=== PATIENT | female | born 1935 | race Caucasian/White ===

== ENCOUNTER → 2016-06-27 | Outpatient (CLI) | payer BC ==
[~2016-06-27] MED LIST: AMLO-110 PO; ATOR-26 PO; INSUINJ8 SC; LABE1TAB28 PO; LEVO112T18 PO; LISI20TA55 PO; NVLGI SC; NVLGI SQ
[2016-06-27 09:54] LABS: ALT/SGPT 15 U/L (12-78); AST/SGOT 12 U/L (15-37); BLOOD UREA NITROGEN 15 mg/dl (7-18); BUN/CREATININE RATIO 13.7 (10-20); CALCIUM 9.4 mg/dl (8.5-10.1); CARBON DIOXIDE 32 mmol/L (21-32); CHLORIDE 101 mmol/L (98-107); GLUCOSE 155 mg/dl (70-99); POTASSIUM 3.7 mmol/L (3.5-5.1); SODIUM 139 mmol/L (136-145)
[2016-06-27 10:05] LABS: ALB/GLOB RATIO 0.9 (0.9-2); ALKALINE PHOSPHATASE 62 U/L (45-117); CHOLESTEROL 119 mg/dl (0-200); CHOLESTEROL/HDL RATIO 2.3; HDL CHOLESTEROL 52 mg/dl; LDL CHOLESTEROL CALCULATED 45 mg/dl; THYROID STIMULATING HORMONE 0.973 uIu/ml (0.300-4.500); TRIGLYCERIDES 110 mg/dl (0-150); VERY LOW DENSITY LIPOPROT CALC 22 mg/dl
[2016-06-27 10:23] LABS: ESTIMATED AVERAGE GLUCOSE 174 mg/dl; HA1C FLAG Normal (Normal)
== END | disposition home or self-care (01) ==
LOC: C.LAB1850 07:35
PROVIDERS: ATTEND Internal Medicine Endocrinology, Diabetes & Metabolism
DX: E11.9 Type 2 diabetes mellitus without complications (principal); E55.9 Vitamin D deficiency, unspecified; E53.8 Deficiency of other specified B group vitamins

== ENCOUNTER → 2016-07-02 | Outpatient (CLI) | payer BC | END | disposition home or self-care (01) | LOC: C.LABSPEC 14:29 | PROVIDERS: ATTEND Internal Medicine | DX: E11.9 Type 2 diabetes mellitus without complications (principal) ==

== ENCOUNTER → 2016-12-23 | Outpatient (CLI) | payer BC ==
[2016-12-23 15:49] LABS: ALT/SGPT 16 U/L (12-78); BLOOD UREA NITROGEN 20 mg/dl (7-18); BUN/CREATININE RATIO 16.8 (10-20); CALCIUM 9.3 mg/dl (8.5-10.1); CARBON DIOXIDE 30 mmol/L (21-32); CHLORIDE 102 mmol/L (98-107); GLUCOSE 183 mg/dl (70-99); POTASSIUM 3.8 mmol/L (3.5-5.1); SODIUM 137 mmol/L (136-145)
[2016-12-23 15:52] LABS: ALB/GLOB RATIO 0.8 (0.9-2); ALKALINE PHOSPHATASE 64 U/L (45-117); AST/SGOT 15 U/L (15-37)
[2016-12-24 07:41] LABS: ESTIMATED AVERAGE GLUCOSE 180 mg/dl; HA1C FLAG Normal (Normal)
== END | disposition home or self-care (01) ==
LOC: C.LAB1850 14:06
PROVIDERS: ATTEND Internal Medicine
DX: E11.65 Type 2 diabetes mellitus with hyperglycemia (principal)

== ENCOUNTER → 2017-07-29 | Outpatient (CLI) | payer BC ==
[2017-07-29 09:47] LABS: BASO % 0.6 %; BASO ABS # 0.04 K/uL (0-0.2); EOS % 2.9 %; EOS ABS # 0.21 K/uL (0-0.5); HEMATOCRIT 35.1 % (37-47); HEMOGLOBIN 11.9 g/dL (12.0-16.0); IG# 0.01 K/uL (0.00-0.02); LYMPH % 28.1 %; MEAN CELL VOLUME 85.4 fL (80-100); MEAN CORPUSCULAR HGB CONC 33.9 g/dl (32-36); MEAN PLATELET VOLUME 9.8 fL (7.4-10.4); MONO ABS # 0.64 K/uL (0.11-0.59); NEUT % 59.3 %; NEUT ABS # 4.22 K/uL (1.4-6.5); PLATELET COUNT 262 K/uL (130-400); RED CELL DISTRIBUTION WIDTH CV 13.5 % (11.5-14.5); RED CELL DISTRIBUTION WIDTH SD 42.2 fL (36.4-46.3); WHITE BLOOD COUNT 7.12 K/uL (4.8-10.8)
[2017-07-29 10:03] LABS: ALBUMIN 3.3 gm/dl (3.4-5.0); ALT/SGPT 17 U/L (12-78); AST/SGOT 15 U/L (15-37); BLOOD UREA NITROGEN 22 mg/dl (7-18); CALCIUM 9.1 mg/dl (8.5-10.1); CARBON DIOXIDE 31 mmol/L (21-32); CHOLESTEROL 117 mg/dl (0-200); CREATININE 1.07 mg/dl (0.60-1.20); GLUCOSE 165 mg/dl (70-99); POTASSIUM 3.6 mmol/L (3.5-5.1); SODIUM 136 mmol/L (136-145)
[2017-07-29 10:15] LABS: CREATININE RANDOM URINE 78.6 mg/dl
[2017-07-29 10:15] LABS: HEMOGLOBIN A1C 7.9 % (4.5-5.6)
[2017-07-29 10:18] LABS: ALKALINE PHOSPHATASE 72 U/L (45-117); LDL CHOLESTEROL CALCULATED 54 mg/dl; TOTAL PROTEIN 7.6 gm/dl (6.4-8.2)
== END | disposition home or self-care (01) ==
LOC: C.LAB1850 07:08
PROVIDERS: ATTEND Nurse Practitioner Family
DX: E11.65 Type 2 diabetes mellitus with hyperglycemia (principal); I10 Essential (primary) hypertension; E53.8 Deficiency of other specified B group vitamins; E55.9 Vitamin D deficiency, unspecified; E03.9 Hypothyroidism, unspecified

== ENCOUNTER 2019-08-26 08:49 | Inpatient (IN) ==
[2019-08-26] MEDS ORDERED: SODIUM CHLORIDE 0.9% 1000ML 500 ML IV ONE (09:04)
[2019-08-26 09:43] LABS: Basophils # (auto) 0.02 K/uL (0-0.2); Basophils % (auto) 0.2 %; Eosinophils # (auto) 0.09 K/uL (0-0.5); Hematocrit (blood only) 39.6 % (37-47); Immature Granulocytes # (auto) 0.04 K/uL (0.00-0.02); Immature Granulocytes % (auto) 0.5 %; Lymphocytes # (auto) 1.55 K/uL (1.2-3.4); Lymphocytes % (auto) 17.6 %; Mean Corpuscular Hemoglobin 28.8 pg (25-34); Mean Corpuscular Hgb Conc 32.8 g/dL (32-36); Mean Corpuscular Volume 87.8 fL (80-100); Mean Platelet Volume 10.5 fL (7.4-10.4); Monocytes # (auto) 0.89 K/uL (0.11-0.59); Monocytes % (auto) 10.1 %; Neutrophils % (auto) 70.6 %; Platelet Count 289 K/uL (130-400); RDW Standard Deviation 45.9 fL (36.4-46.3); Red Blood Count 4.51 M/uL (4.2-5.4); White Blood Count 8.79 K/uL (4.8-10.8)
--- NOTE | 2019-08-26 09:48 | Emergency Department Note ---
Impression & Plan Non-ST elevation ID (NSTEMI), Weakness, Nausea & vomiting, Changes in vision ED Provider Note Provider: Manoj Flores MD DATE OF SERVICE: 08/26/2019 CHIEF COMPLAINT: Weakness, visual change, abdominal symptoms HISTORY OF PRESENT ILLNESS: Patient is a 84-year-old female with a past medical history including diabetes, aortic valve replacement, CAD, hypothyroidism, hypertension presenting today with reports that over the past week she has been unwell. Evidently but a week ago had GI symptoms for 3 to 4 days with nausea vomiting and diarrhea. Had some diffuse abdominal cramping at that time. Patient states that improved some but she continued to be weak. States over the last several days about 3 she has had some changes in her vision and states that she is seeing some line-like items. Patient also states that she had a mild headache at the time and does have some pain predominantly left upper area of her head. Denies any trauma. Patient is maintained on aspirin but no other blood thinners. Patient was seen at her primary care physician's office referred here for further care. Denies current abdominal symptoms. Denies chest pain or shortness of breath. Patient denies focal weakness in her extremities. Patient denies any rashes recently. Patient denies a history of similar. Patient denies history of cardiac arrhythmia. Patient denies any eye pain. History of eye surgery before in the left eye. Reports that the primary care's office they noted some vision loss in the right eye. Patient's blood sugars over the last day or so have been elevated in the 300s. REVIEW OF SYSTEMS: A total of 10 review of systems was obtained and negative except as stated above in the HPI. PAST MEDICAL HISTORY: As noted above MEDICATIONS: Reviewed her medication list including insulin, Synthroid, aspirin among others SOCIAL HISTORY: Patient is a non-smoker and lives at home. PHYSICAL EXAM: GENERAL: alert and oriented in no acute distress on stretcher Head: normocephalic and atraumatic EYES: No injection, discharge or icterus. PERRL, EOMI. NECK: Trachea midline. Supple. ENT: Mucous membranes pink and moist. LUNGS: Airway patent. No retractions. Breath sounds clear with good air entry bilaterally. HEART: Irregular rate and rhythm. No chest wall tenderness ABDOMEN: Soft and non-tender, without guarding or rebound. No gross masses appreciated. SKIN: Acyanotic, warm, dry, without rashes EXTREMITIES: Without swelling, tenderness or deformity NEUROLOGICAL: No aphasia, facial droop, or slurred speech. No pronator drift. Intact strength of the upper and lower extremities bilaterally. Tongue is midline. Maybe some slight right index [id number] ataxia but not on the left. Patient does have fairly significant loss of peripheral upper and lower to almost mid field vision of her right eye. EKG: Patient noted to be in atrial fibrillation with rate of 97 bpm. Left bundle branch is noted. No acute ST segment elevation is notable. In compari son to previous available from October [id number], patient does now appear to be in a atrial fibrillation and the bundle branch block does appear new. CONTINUOUS CARDIAC MONITORING: was ordered and showed a heart rate of 88 bpm in sinus rhythm with PVCs and a bundle branch Patient's hypertension was referred to the [facility] COURSE: 907 Patient was first seen and H&P performed. 1027 Patient reassessed and updated. Patient was unchanged in symptoms. Heart rate still in the 80s and 90s but irregular. Discussed with patient, daughter, and son via phone findings. Recommended admission. Patient's laboratory studies and imaging reviewed. Differential includes Infection, dehydration, metabolic abnormality, hypo/hyperglycemia, electrolyte disturbance, anemia, hypoxia, cardiac sources, intracerebral event, toxicologic, neurologic, as well as other pathologies. IMPRESSION/MEDICAL DECISION MAKING: Patient presents today after a GI disturbance with weakness and reports headache with some visual changes over the last several days. Abdominal symptoms have improved and does have a benign abdomen at this point. Does appear to be an EKG and new onset atrial fibrillation she denies a history. Denies any significant chest discomfort at this time or shortness of breath. Do have concerns regarding the loss of right peripheral vision. Unsure if this is strictly ophthalmologic versus possible stroke. Atrial fibrillation is a primary concern although on reevaluation appears to be just more ectopy in comparison with the monitor and later repeat EKG. May be provoked by the GI disturbance and dehydration. Electrolytes and labs were completed. CT the head was completed. Given the patient's chronic kidney disease noncontrast scans were performed. Given that she had some abdominal discomfort and issues recently CT abdomen pelvis completed as well to look for any occult findings there. Doubt this represents coronavirus. There is no rash in the more scalp pain she is having left upper does not correspond with her visual changes and I doubt that this represents shingles. 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 Patient and family deny known history of this. Chest x-ray with some mild pulmonary edema/vascular congestion, however the patient likely is not requiring significant oxygen at this time. CT the abdomen pelvis without acute pathology. Laboratory studies show evidence of some mild hyponatremia and hypo kalemia as well as hypomagnesemia. Troponin is significant at 0.979. Patient has baseline chronic kidney disease. Given 500 mL of normal saline. Ordered IV potassium and magnesium replacement. Likely . Discussed with patient and family via phone. Recommend stay in the hospital for further evaluation. Patient denies chest pain at this time. We will give an additional dose of aspirin for full dose. They request that I speak with Dr. Saldaña their campus rep regarding this. Call was placed to the office to try to get him on the phone however does not appear he is available in the office today. I discussed with them that he was unavailable. Discussed I still recommend admission. Discussed with him recommendations for heparinization at this time and they were in agreement. Discussed with them I would recommend further evaluation including MRI to exclude a small stroke beyond the old LAG SCREWER stroke noted on the CT. Discussed with him could represent retinal pathology and may n eed ophthalmology involvement (could represent CRAO, I doubt acute glaucoma given the lack of eye pain) however to exclude acute neurological injury such as stroke as well as further cardiac evaluation further inpatient admission was recommended. Discussed recommendation for further cardiac evaluation. They were in agreement. Hospitalist contacted. DIAGNOSIS: visual change, NSTEMI, weakness, nausea and vomiting DISPOSITION: Hospitalist will evaluate Patient was agreeable with this plan. Critical Care I have personally spent 46 minutes of critical care time in the direct management of this patient. This includes bedside care, interpretation of diagnostic studies, and testing, discussion with consultants, patient, and family members, and other required patient management activities. These 46 minutes is in excess of all separately billable procedures. Past Med/Surg History Medical History (Updated 08/26/19 @ 14:29 by Mitchell Cuellar MD) Congestive heart failure Depression Diabetes mellitus, type 2 IDDM Diabetes type 2, uncontrolled Family history of diabetes mellitus grandmother maternal Family hx of colon cancer brother History of squamous cell carcinoma Hyperlipidemia Hypertension Hypothyroidism Migraine Osteoarthritis Vitreomacular traction syndrome of left eye Surgical History (Updated 03/22/19 @ 12:39 by Leonardo Saldaña MD) H/O left breast biopsy benign History of ankle surgery left ankle History of cardiac cath 8+ years ago History of cataract surgery Bilateral History of cholecystectomy History of colonoscopy History of heart valve replacement aortic valve 8 years ago (Dr Alvaro Sanchez) currently f/u with Dr Saldaña History of tooth extraction all teeth Nausea and vomiting after administration of anesthetic agent S/P aortic valve replacement with bioprosthetic valve (2009) Social History Preferred Language: [place] Communication Ability: Effective [employer] Required: No Beliefs That Will Affect Care: None Current Living Situation: Alone Other Information That Helps Us Care for You: No Feels Safe at Home: Yes Safety Concerns: Feels Safe At This Time Smoking Status: Never smoker Second Hand Exposure: No ; Hx Alcohol Use: No Hx Substance Use: No Allergies Allergies Allergy/AdvReac Type Severity Reaction Status Date / Time insulin glargine Allergy Unknown Verified 08/26/19 10:02 [From Lantus U-100 Insulin] morphine Allergy Unknown VOMITING Verified 08/26/19 10:02 Sulfa (Sulfonamide Allergy Unknown BURNING ON Verified 08/26/19 10:02 Antibiotics) URINATION atorvastatin [From Lipitor] AdvReac Mild Abdominal Verified 08/26/19 10:02 Pain Home Meds Home Medications Medication Instructions Recorded Confirmed potassium chloride 20 meq PO UD 04/07/18 08/26/19 aspirin 81 mg tablet,delayed 81 mg PO QAM tab 12/30/18 08/26/19 release cholecalciferol (vitamin D3) 50 2,000 units PO QAM cap 12/30/18 08/26/19 mcg (2,000 unit) capsule nitroglycerin 0.4 mg sublingual 0.4 mg SL Q5M PRN #1 tab 12/30/18 08/26/19 tablet furosemide 40 mg tablet 40 mg PO DAILY PRN tab 05/03/19 08/26/19 insulin aspart U-100 [Novolog 35 units SUBCUT AC 08/26/19 08/26/19 U-100 Insulin aspart] insulin degludec [Tresiba 8 - 12 units SQ HS 08/26/19 08/26/19 FlexTouch U-100] rosuvastatin [Crestor] 40 mg PO Q2D 08/26/19 08/26/19 Previous Rx's Medication Instructions Recorded OneTouch Verio test strips #400 ea NS 01/11/19 amlodipine 5 mg tablet 5 mg PO BID #180 tab 05/03/19 OneTouch Delica Lancets 33 gauge #400 ea NS 05/18/19 pen needle, diabetic 32 gauge x #400 ea 05/18/19" levothyroxine 125 mcg tablet 125 mcg PO QAM #90 tab 06/02/19 lisinopril 20 1 tab PO QAM #90 tab 07/04/19 mg-hydrochlorothiazide 25 mg tablet Results & Data (ED) Vital Signs Vital Signs - 24 hr 08/26/19 08:52 08/26/19 09:05 08/26/19 09:17 Temperature 36.4 C L Temperature Source Oral Pulse Rate 93 H 102 H Pulse Rate from SpO2 Sensor Pulse Rhythm Regular Pulse Strength Normal Respiratory Rate 20 23 Respiratory Effort / Characteristics Non-Labored Spontaneous Respiratory Depth Normal Respiratory Pattern Regular Blood Pressure 152/67 H 144/90 H Blood Pressure Mean 95 105 Pulse Oximetry 95 95 95 Oxygen Delivery Method Room Air Room Air Room Air Oxygen Flow Rate Sepsis Recent Fever Within 48 Hours No Sepsis Action Taken by Nursing No Action Required Oxygen Flow Rate - Titration Pulse Oximetry Post Tiitration 08/26/19 09:30 08/26/19 10:04 08/26/19 10:30 Temperature Temperature Source Pulse Rate 81 110 H 88 Pulse Rate from SpO2 Sensor 97 H 108 H Pulse Rhythm Pulse Strength Respiratory Rate 23 22 22 Respiratory Effort / Characteristics Respiratory Depth Respiratory Pattern Blood Pressure 149/66 H 145/78 H 164/90 H Blood Pressure Mean 108 104 124 Pulse Oximetry 95 94 92 Oxygen Delivery Method Room Air Room Air Oxygen Flow Rate Sepsis Recent Fever Within 48 Hours Sepsis Action Taken by Nursing Oxygen Flow Rate - Titration Pulse Oximetry Post Tiitration 08/26/19 11:01 08/26/19 11:06 08/26/19 11:31 Temperature Temperature Source Pulse Rate 90 94 H Pulse Rate from SpO2 Sensor 87 85 Pulse Rhythm Pulse Strength Respiratory Rate 24 24 Respiratory Effort / Characteristics Respiratory Depth Respiratory Pattern Blood Pressure 150/90 H 135/89 Blood Pressure Mean 115 111 Pulse Oximetry 90 88 L 92 Oxygen Delivery Method Room Air Room Air Nasal Cannula Oxygen Flow Rate 2 Sepsis Recent Fever Within 48 Hours Sepsis Action Taken by Nursing Oxygen Flow Rate - Titration 2 Pulse Oximetry Post Tiitration 95 08/26/19 12:00 08/26/19 12:31 Temperature Temperature Source Pulse Rate 102 H 88 Pulse Rate from SpO2 Sensor Pulse Rhythm Pulse Strength Respiratory Rate 22 22 Respiratory Effort / Characteristics Respiratory Depth Respiratory Pattern Blood Pressure 143/115 H 159/72 H Blood Pressure Mean 126 101 Pulse Oximetry 94 93 Oxygen Delivery Method Nasal Cannula Nasal Cannula Oxygen Flow Rate 2 2 Sepsis Recent Fever Within 48 Hours Sepsis Action Taken by Nursing Oxygen Flow Rate - Titration Pulse Oximetry Post Tiitration Laboratory Data Result diagrams: 08/26/19 09:09 08/26/19 09:09 Lab Results 08/26/19 08/26/19 08/26/19 Range/Units 09:09 09:09 09:09 WBC 8.79 (4.8-10.8) K/uL RBC 4.51 (4.2-5.4) M/uL Hgb 13.0 (12.0-16.0) g/dL Hct 39.6 (37-47) % MCV 87.8 (80-100) fL MCH 28.8 (25-34) pg MCHC 32.8 (32-36) g/dL RDW Std Deviation 45.9 (36.4-46.3) fL RDW Coeff of Poncho 15.0 H (11.5-14.5) % Plt Count 289 (130-400) K/uL MPV 10.5 H (7.4-10.4) fL Immature Gran % (Auto) 0.5 % Neut % (Auto) 70.6 % Lymph % (Auto) 17.6 % [place] % (Auto) 10.1 % Eos % (Auto) 1.0 % Baso % (Auto) 0.2 % Immature Gran # (Auto) 0.04 H (0.00-0.02) K/uL Neut # (Auto) 6.20 (1.4-6.5) K/uL Lymph # (Auto) 1.55 (1.2-3.4) K/uL [place] # (Auto) 0.89 H (0.11-0.59) K/uL Eos # (Auto) 0.09 (0-0.5) K/uL Baso # (Auto) 0.02 (0-0.2) K/uL PT 10.7 (9.0-12.0) Seconds INR 1.0 (0.9-1.1) APTT 24.9 (21.0-31.0) Seconds PTT Ratio 0.9 Sodium 131 L (136-145) mmol/L Potassium 3.1 L (3.5-5.1) mmol/L Chloride 98 (98-107) mmol/L Carbon Dioxide 23 (21-32) mmol/L Anion Gap 10.0 (3-11) BUN 32 H (7-18) mg/dl Creatinine 1.52 H (0.6-1.2) mg/dl Est Cr Clr Drug Dosing 25.4 ml/min Est GFR ( Amer) 36.4 Est GFR (Non-Af Amer) 31.4 BUN/Creatinine Ratio 20.7 H (10-20) Glucose 255 H (70-99) mg/dl POC Glucose (70-99) mg/dl Calcium 8.9 (8.5-10.1) mg/dl Magnesium 1.7 L (1.8-2.4) mg/dl Total Bilirubin 1.4 H (0.2-1) mg/dl AST 22 (15-37) U/L ALT 21 (12-78) U/L Alkaline Phosphatase 72 (45-117) U/L Troponin I 0.979 H* (0-0.045) ng/ml Total Protein 7.6 (6.4-8.2) gm/dl Albumin 3.0 L (3.4-5.0) gm/dl Globulin 4.6 H (2.5-4.0) gm/dl Albumin/Globulin Ratio 0.6 L (0.9-2) Lipase 42 L (73-393) U/L TSH 0.569 (0.300-4.500) uIu/ml 08/26/19 Range/Units 09:40 WBC (4.8-10.8) K/uL RBC (4.2-5.4) M/uL Hgb (12.0-16.0) g/dL Hct (37-47) % MCV (80-100) fL MCH (25-34) pg MCHC (32-36) g/dL RDW Std Deviation (36.4-46.3) fL RDW Coeff of Poncho (11.5-14.5) % Plt Count (130-400) K/uL MPV (7.4-10.4) fL Immature Gran % (Auto) % Neut % (Auto) % Lymph % (Auto) % [place] % (Auto) % Eos % (Auto) % Baso % (Auto) % Immature Gran # (Auto) (0.00-0.02) K/uL Neut # (Auto) (1.4-6.5) K/uL Lymph # (Auto) (1.2-3.4) K/uL [place] # (Auto) (0.11-0.59) K/uL Eos # (Auto) (0-0.5) K/uL Baso # (Auto) (0-0.2) K/uL PT (9.0-12.0) Seconds INR (0.9-1.1) APTT (21.0-31.0) Seconds PTT Ratio Sodium (136-145) mmol/L Potassium (3.5-5.1) mmol/L Chloride (98-107) mmol/L Carbon Dioxide (21-32) mmol/L Anion Gap (3-11) BUN (7-18) mg/dl Creatinine (0.6-1.2) mg/dl Est Cr Clr Drug Dosing ml/min Est GFR ( Amer) Est GFR (Non-Af Amer) BUN/Creatinine Ratio (10-20) Glucose (70-99) mg/dl POC Glucose 260 H (70-99) mg/dl Calcium (8.5-10.1) mg/dl Magnesium (1.8-2.4) mg/dl Total Bilirubin (0.2-1) mg/dl AST (15-37) U/L ALT (12-78) U/L Alkaline Phosphatase (45-117) U/L Troponin I (0-0.045) ng/ml Total Protein (6.4-8.2) gm/dl Albumin (3.4-5.0) gm/dl Globulin (2.5-4.0) gm/dl Albumin/Globulin Ratio (0.9-2) Lipase (73-393) U/L TSH (0.300-4.500) uIu/ml Administered Medications Heparin Sodium/Dextrose (Heparin Sodium/Dextrose) 25,000 units in 500 mls @ 21 mls/hr IV .[id number] [facility]; Protocol Stop: 09/25/19 11:29 Last Admin: 08/26/19 12:05 Dose: 1,050 units/hr, 21 mls/hr Documented by: [id number] Cosigned by: [id number] Lactated Ringer's (Lr) 1,000 mls @ 80 mls/hr IV .[id number] [facility] Stop: 09/25/19 12:44 Last Admin: 08/26/19 14:35 Dose: 80 mls/hr Documented by: [id number] Discontinued Medications Aspirin (Aspirin Chew) 243 mg PO NOW STA Stop: 08/26/19 10:50 Last Admin: 08/26/19 10:55 Dose: 243 mg Documented by: [id number] Heparin Sodium (Beef Lung) (Heparin Sod 5000u Heart Alert) Confirm Administered Dose 5,000 units .ROUTE .STK-MED ONE Stop: 08/26/19 11:41 Last Admin: 08/26/19 12:06 Dose: 4,000 units Documented by: [id number] Cosigned by: [id number] Heparin Sodium/Dextrose () 1 ea IV NOW STA; Protocol Stop: 08/26/19 11:27 Last Admin: 08/26/19 12:32 Dose: Not Given Documented by: [id number] Sodium Chloride (Nss 1000ml) 500 mls @ 999 mls/hr IV .Q31M ONE Stop: 08/26/19 09:34 Last Infusion: 08/26/19 10:14 Dose: 0 mls/hr Documented by: [id number] Admin: 08/26/19 09:41 Dose: 999 mls/hr Documented by: [id number] Magnesium Sulfate/Dextrose (Magnesium Sulfate / D5w) 1 gm in 100 mls @ 100 mls/hr IV NOW STA Stop: 08/26/19 11:41 Last Infusion: 08/26/19 11:58 Dose: 0 mls/hr Documented by: [id number] Admin: 08/26/19 10:56 Dose: 100 mls/hr Documented by: [id number] Potassium Chloride (K Ciaran / Wtr) 10 meq in 100 mls @ 100 mls/hr IV ONE ONE Stop: 08/26/19 11:40 Last Infusion: 08/26/19 11:58 Dose: 0 mls/hr Documented by: [id number] Admin: 06/12/20 10:55 Dose: 100 mls/hr Documented by: [id number] Discharge Plan Visit Data *Final* Discharge Date/Time: 08/26/19 14:26 Chief Complaint: Weakness Stated Complaint: DR HERNANDEZ - WEAKNESS,EYE ISSUES - POS STROKE ED Provider: Manoj Flores Discharge Problem: Non-ST elevation ID (NSTEMI), Weakness, Nausea & vomiting, Changes in vision Patient Disposition: Admitted As Inpatient Discharge Instructions Interventions: ED Discharge Assessment Last Done: 08/26/19 14:26 Discharge Problem: Nausea & vomiting Qualifiers: Vomiting type: unspecified Vomiting Intractability: non-intractable Qualified Code(s): R11.2 - Nausea with vomiting, unspecified
[2019-08-26 09:51] LABS: BUN Creatinine Ratio 20.7 (10-20); Calcium 8.9 mg/dl (8.5-10.1); Creatinine Clr Calc Pharmacy 25.4 ml/min; Est GFR (African American) 36.4; Est GFR (Non-African American) 31.4; Magnesium 1.7 mg/dl (1.8-2.4); Potassium 3.1 mmol/L (3.5-5.1)
[2019-08-26 09:52] LABS: Partial Thromboplastin Ratio 0.9; Partial Thromboplastin Time 24.9 Seconds (21.0-31.0); Prothrombin Time 10.7 Seconds (9.0-12.0)
[2019-08-26 10:05] LABS: Albumin Globulin Ratio 0.6 (0.9-2); Bilirubin,Total 1.4 mg/dl (0.2-1); Globulin 4.6 gm/dl (2.5-4.0); Thyroid Stimulating Hormone 0.569 uIu/ml (0.300-4.500); Total Protein 7.6 gm/dl (6.4-8.2); Troponin I 0.979 ng/ml (0-0.045)
--- NOTE | 2019-08-26 10:08 | CT Scan Report ---
HEAD CT NONCONTRAST CT DOSE: 881.47 mGy.cm HISTORY: weakness, R eye vision changes TECHNIQUE: Multiaxial CT images of the head were performed without the use of intravenous contrast. A utomated exposure control was utilized for this study. A dose lowering technique was utilized adheri ng to the principles of ALARA. Comparison: None. Findings: The paranasal sinuses and mastoid air cells are clear. The calvarium and skull base are int act. There is no mass, hematoma, midline shift, acute infarct. White matter hypodensity is nonspecifi c but suggestive of microvascular ischemic change. The ventricles and sulci demonstrate mild age-rela lonny involutional changes. Encephalomalacia within the medial left occipital lobe consistent with an o ld [employer]TENDED [employer] TE[employer] territory infarct. Impression: No acute intracranial abnormality. Atrophy and microvascular ischemic changes. 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 ACT 112: Negative or not required by law. Electronically signed by: Aron Spaulding M.D. 08/26/2019 10:07 AM
--- NOTE | 2019-08-26 10:13 | CT Scan Report ---
CT SCAN OF THE ABDOMEN AND PELVIS WITHOUT CONTRAST CLINICAL HISTORY: nausea, vomiting, diarrhea COMPARISON STUDY: No previous studies for comparison. TECHNIQUE: CT scan of the abdomen and pelvis was performed from the lung bases to the proximal femurs . Images are reviewed in the axial, sagittal, and coronal planes. IV contrast was not administered fo r this examination. A dose lowering technique was utilized adhering to the principles of ALARA. CT DOSE: 698.79 mGy.cm FINDINGS: Lower chest: The heart is enlarged. There are small bilateral pleural effusions. There is mild pulmon david vascular prominence. There is respiratory motion artifact. There is a moderate hiatal hernia. Liver: The unenhanced liver is normal in size, contour, and attenuation. There is no intrahepatic leatha iary ductal dilatation. Gallbladder: Surgically absent Spleen: Normal in size and attenuation. Pancreas: Unremarkable. Adrenal glands: Unremarkable. Kidneys: There is increased density within the left renal pelvis, likely representing a calculus. Thi s measures 5 mm Bowel: There are no transition zones indicate bowel obstruction. There is colonic diverticulosis. The re are no acute peridiverticular inflammatory changes present. The appendix appears normal. Peritoneum: There is no intraperitoneal free air or abdominal ascites. Vasculature: There is no evidence of abdominal aortic aneurysm. There are extensive atheromatous calc ifications within the mesenteric vessels and proximal renal arteries. Adenopathy: None. Pelvic viscera: The bladder, and pelvic viscera are unremarkable. Skeletal structures: There is infiltration of subcutaneous fat within the anterior abdominal wall, li yusuf secondary to prior subcutaneous injections. IMPRESSION: 1. Motion degraded study 2. Cardiomegaly and bilateral pleural effusions 3. Moderate hiatal hernia 4. Diverticulosis. No evidence of acute diverticulitis 5. Normal appendix 6. No evidence of bowel obstruction. No evidence of free air 7. 5 mm hyperdense focus within the left renal pelvis. While nonspecific, this likely represents a fa intly opaque calculus. ACT 112: Negative or not required by law. Electronically signed by: Ruel Garibay M.D. 08/26/2019 10:11 AM
--- NOTE | 2019-08-26 10:14 | XRay Report ---
XR chest 1V portable CLINICAL HISTORY: weakness COMPARISON STUDY: No previous studies for comparison. FINDINGS: The heart is enlarged. There are postsurgical changes of midline sternotomy and aortic valv e replacement. There is elevation of interstitium, likely secondary to mild pulmonary vascular conges tion. There are no pleural effusions[. There is evidence for left shoulder calcific tendinopathy IMPRESSION: Cardiomegaly and suspected mild pulmonary vascular congestion/fluid overload. No evidence of focal pulmonary consolidation ACT 112: Negative or not required by law. Electronically signed by: Ruel Garibay M.D. 08/26/2019 10:12 AM
[2019-08-26] MEDS ORDERED: POTASSIUM CHLORIDE / WTR 10 MEQ/100 ML PLCT IV ONE (10:41)
[2019-08-26] MEDS ORDERED: MAGNESIUM SULFATE / D5W 1 GM/100 ML BAG IV STA (10:42)
[2019-08-26] MEDS ORDERED: ASPIRIN 81 MG CHEW PO STA (10:49)
[2019-08-26] MEDS ORDERED: HEPARIN SODIUM/DEXTROSE 25,000 UNITS/500 ML BAG IV SCH ×2 (11:30→13:30)
[2019-08-26] MEDS ORDERED: HEPARIN SQ 5000 UNIT HEART ALERT CARP ONE (11:40)
[2019-08-26] MEDS ORDERED: LACTATED RINGER'S 1,000 ML IV SCH (12:45)
[2019-08-26] MEDS ORDERED: Heparin IV Low Dose *NO* Bolus IV SCH (13:25)
--- NOTE | 2019-08-26 14:29 | History & Physical Report ---
Date of Service August 26, 2019 Assessment & Plan (1) Changes in vision: No loss of vision therefore central retinal artery occlusion not suspected. Right pupil less reactive than left. Blurring ?related to prior encephalomalacia. No visual field defect on exam that would be expected with this. Appears improved but not yet back to baseline after IV NSS 500ml bolus given in ER ?new acute stroke/TIA Given prior worsening renal function with IV contrast will get MRA head w/o contrast and carotid US. MRI brain w/o contrast TTE Lipid profile and HbA1C with AM labs Continue rosuvastatin and ASA Currently on heparin drip therefore will defer starting clopidogrel at this time Consult neurology (2) CVA, old, disturbances of vision: Prior incidental left occipital lobe stroke, therefore would expect Left sided visual field loss Unclear from history of her true vision problems but since at times it is bilateral eyes her symptoms may be due to a stroke in this area (3) Internal carotid artery stenosis: CTA neck [09/2018] - Severe calcified plaque of the left carotid bulb results in 75% luminal narrowing of the proximal ICA, Moderate calcified plaque of the right carotid bulb results in 50% luminal narrowing of the proximal right ICA, 60% luminal narrowing at the origin of the right vertebral artery secondary to calcified plaque. ASA, rosuvastatin, repeat carotid US (4) Vitreomacular traction syndrome of left eye: Notable history of this with baseline 20/40 vision in this eye (5) Elevated troponin: Unclear if demand-ischemia due to dehydration from not eating and drinking vs. new acute given LBBB (although last EKG in comparison from 2008) ASA 324mg PO given in ER Heparin IV drip (6) Left bundle branch block: New onset since 2008 No chest pain or shortness of breath on admission to suggest ACS Troponin elevation as below (7) Irregular heart rhythm: Reported as atrial fibrillation however p waves present and discussed with Dr Wagner agrees. Will reduce heparin drip to low dose given elevated troponin and LBBB as above (8) Weakness: Generalized, not unilateral (9) Diabetes type 2, uncontrolled: HbA1C 7.8 in 12/2018, will repeat with AM labs 9 units tresiba last night Consult pharmarcy for glycemic control (10) Hypothyroidism: TSH WNL. Continue levothyroxine 125 mcg PO daily (11) CAD in [place] artery: Unclear history of this from patient and prior cardiology outpatient note Moderate MR/moderate to severe TR with moderate pulmonary hypertension Continue ASA, not on BB due to previous bradycardia, lisinopril 20mg PO daily, rosuvastatin 40mg Q2D (12) S/P aortic valve replacement with bioprosthetic valve: notable history of this (13) Osteoporosis: Continue vitamin D supplementation Admission and Anticipated Discharge Date Admission Date: 08/26/2019 History of Present Illness Chief Complaint: Change in vision, irregular heart rate Primary Care Provider: Guero Wayne MD Britney Cowart is an 84 year old female with prior aortic valve replacement, CAD, Type 2 diabetes mellitus, hypothyroidism, hypertension who presents to the ER with a 2 week history of diarrheal illness, culminating with vision changes for the past 2-7 days. She was advised to come to the ER for her symptoms on Thursday but was anxious about coming to the ER so went to her PCP today with irregular heart rate, tachycardia and complaining of vision loss. History taking is challenging as the patient changes her story often during the same conversation. She was seen with her daughter who is able to provide a little more clarity. Her illness started with diarrhea with lower abdominal cramping pain, she denies any watery diarrhea. She became significantly dehydrated during this time but eventually her diarrhea improved about 3-4 days ago, her appetite however has not improved. No loss of taste or smell. No nausea or vomiting. No melena or red blood in stool. Unclear when her vision changes truly started but appears to have been getting worse the last 2 days at least. She told her PCP that she had vision loss in her left eye but both herself and her daughter tell me it was her right eye. At the present time she notes notes blurring of vision bilaterally not in a specific visual field, worse than her vision 2 weeks ago but significantly improved from what she had when she saw her PCP earlier today. On specific questions she feels she had right vision blurring with her PCP earlier rather than any blackness or true vision loss. Discussed CT head showing prior left occipital stroke and she denies any prior history of left sided visual field loss. She does not a history of vitreomacular traction syndrome in her left eye which improved with surgery - reportedly improved her vision to 20/40. Irregular She does reports current headache ?present for 1-2 days, all over the head, aching. No unilateral extremity weakness, facial droop. She denies any chest pain, shortness of breath, palpitations, orthopnea, PND, presyncope or syncope. She denies any shortness of breath, cough, fever, loss of taste or smell. No known COVID-19 exposure. Allergies Allergy/AdvReac Type Severity Reaction Status Date / Time insulin glargine Allergy Unknown Verified 08/26/19 10:02 [From Lantus U-100 Insulin] morphine Allergy Unknown VOMITING Verified 08/26/19 10:02 Sulfa (Sulfonamide Allergy Unknown BURNING ON Verified 08/26/19 10:02 Antibiotics) URINATION atorvastatin [From Lipitor] AdvReac Mild Abdominal Verified 08/26/19 10:02 Pain Home Medications Home Medications Medication Instructions Recorded Confirmed Type potassium chloride 20 meq PO UD 04/07/18 08/26/19 History aspirin 81 mg tablet,delayed 81 mg PO QAM tab 12/30/18 08/26/19 History release cholecalciferol (vitamin D3) 50 2,000 units PO QAM cap 12/30/18 08/26/19 History mcg (2,000 unit) capsule nitroglycerin 0.4 mg sublingual 0.4 mg SL Q5M PRN #1 tab 12/30/18 08/26/19 History tablet OneTouch Verio test strips #400 ea NS 01/11/19 08/26/19 Rx amlodipine 5 mg tablet 5 mg PO BID #180 tab 05/03/19 08/26/19 Rx furosemide 40 mg tablet 40 mg PO DAILY PRN tab 05/03/19 08/26/19 History OneTouch Delica Lancets 33 gauge #400 ea NS 05/18/19 08/26/19 Rx pen needle, diabetic 32 gauge x #400 ea 05/18/19 08/26/19 Rx 5/32" levothyroxine 125 mcg tablet 125 mcg PO QAM #90 tab 06/02/19 08/26/19 Rx lisinopril 20 1 tab PO QAM #90 tab 07/04/19 08/26/19 Rx mg-hydrochlorothiazide 25 mg tablet insulin aspart U-100 [Novolog 35 units SUBCUT AC 08/26/19 08/26/19 History U-100 Insulin aspart] insulin degludec [Tresiba 8 - 12 units SQ HS 08/26/19 08/26/19 History FlexTouch U-100] rosuvastatin [Crestor] 40 mg PO Q2D 08/26/19 08/26/19 History Past Med/Surg History Medical History (Updated 08/26/19 @ 19:01 by Mitchell Cuellar MD) Congestive heart failure Depression Diabetes mellitus, type 2 IDDM Diabetes type 2, uncontrolled Family history of diabetes mellitus grandmother maternal Family hx of colon cancer brother History of squamous cell carcinoma Hyperlipidemia Hypertension Hypothyroidism Migraine Osteoarthritis Vitreomacular traction syndrome of left eye Surgical History (Updated 03/22/19 @ 12:39 by Leonardo Saldaña MD) H/O left breast biopsy benign History of ankle surgery left ankle History of cardiac cath 8+ years ago History of cataract surgery Bilateral History of cholecystectomy History of colonoscopy History of heart valve replacement aortic valve 8 years ago (Dr Alvaro Sanchez) currently f/u with Dr Saldaña History of tooth extraction all teeth Nausea and vomiting after administration of anesthetic agent S/P aortic valve replacement with bioprosthetic valve (2009) Social History Preferred Language: Ukrainian Communication Ability: Effective Insurance Administrative Assistant Required: No Beliefs That Will Affect Care: None Current Living Situation: Alone Other Information That Helps Us Care for You: No Feels Safe at Home: Yes Safety Concerns: Feels Safe At This Time Smoking Status: Never smoker Second Hand Exposure: No ; Hx Alcohol Use: No Hx Substance Use: No Review of Systems Review of Systems: All systems reviewed & are unremarkable except as noted in HPI & below Constitutional: + weakness (bilateral) and + daytime sleepiness; no fever, no chills, no weight loss and no weight gain Eyes: + worsening vision (blurring R > L); no diplopia, no discharge, no eye pain, no loss of peripheral vision and no tunnel vision Ear, Nose, Mouth, Throat: no problem reported Respiratory: no problem reported Cardiovascular: no problem reported Gastrointestinal: no abdominal pain, no belching, no heartburn, no vomiting, no pain with swallowing, no blood in stools and no melena Genitourinary: no dysuria, no urinary frequency and no problem reported Musculoskeletal: + muscle weakness (generalized) Integumentary: no problem reported Neurologic: + gait abnormality, + unsteadiness, + lack of coordination (bilateral), + dizziness and + headache(s); no falls, no localized weakness, no paralysis, no loss of sensation, no numbness, no paresthesia, no radiating pain, no tremor(s), no syncope, no confusion and no memory loss Psychiatric: no problem reported Endocrine: no problem reported Physical Exam Constitutional: well developed and + obese; + not well nourished and no acute distress Eyes: normal visual canseco by confrontation (grossly normal vision in both eyes), + anicteric sclerae and EOM intact bilaterally (no double vision); + no PERRL (left pupil slightly larger, right pupil sluggish but reactive) ENMT: external ear and nose normal, oropharynx normal Neck: trachea midline, no thyromegaly Respiratory: normal respiratory effort and able to speak in complete sentences; no respiratory distress, no labored breathing and does not use accessory muscles Auscultation: + diminished lung sounds (bibasal); no crackles, no rales, no rhonchi and no wheezes Cardiovascular: Rate/Rhythm: + tachycardic and + irregularly irregular Heart Sounds: no murmur Vessels: no JVD Extremities: normal capillary refill; no calf tenderness and no pedal edema Gastrointestinal (Abdomen): normal bowel sounds, soft, nontender, no hepatosplenomegaly Musculoskeletal: no cyanosis or clubbing, extremities motor strength 5/5 Skin: no rashes, warm and dry Neurologic: moves all extremities and awake; no focal motor deficits and not confused Speech / Cognition: normal speech Motor/Sensory: no tremor and no pronator drift Psychiatric: A+Ox3, euthymic affect Genitourinary: no CVA tenderness Lymphatic: no cervical or axillary lymphadenopathy Results & Data Results & Data ([facility]) Vital Signs (Past 12 Hours) Vital Signs Temp Pulse Resp BP Pulse Ox 08/26/19 14:00 90 23 140/82 92 08/26/19 13:30 91 H 21 139/95 92 08/26/19 13:01 99 H 22 164/84 H 93 08/26/19 12:31 88 22 159/72 H 93 08/26/19 12:00 102 H 22 143/115 H 94 08/26/19 11:31 94 H 24 135/89 92 08/26/19 11:06 88 L 08/26/19 11:01 90 24 150/90 H 90 08/26/19 10:30 88 22 164/90 H 92 08/26/19 10:04 110 H 22 145/78 H 94 08/26/19 09:30 81 23 149/66 H 95 08/26/19 09:17 102 H 23 144/90 H 95 08/26/19 09:05 95 08/26/19 08:52 36.4 C L 93 H 20 152/67 H 95 Diagnostic Findings XR chest 1V portable IMPRESSION: Cardiomegaly and suspected mild pulmonary vascular congestion/fluid overload. No evidence of focal pulmonary consolidation HEAD CT NONCONTRAST Impression: No acute intracranial abnormality. Atrophy and microvascular ischemic changes. Old left CURRICULUM DIRECTOR territory infarct. CT SCAN OF THE ABDOMEN AND PELVIS WITHOUT CONTRAST IMPRESSION: 1. Motion degraded study 2. Cardiomegaly and bilateral pleural effusions 3. Moderate hiatal hernia 4. Diverticulosis. No evidence of acute diverticulitis 5. Normal appendix 6. No evidence of bowel obstruction. No evidence of free air 7. 5 mm hyperdense focus within the left renal pelvis. While nonspecific, this likely represents a faintly opaque calculus. ECG Indication: other (CVA) Rate (beats per minute): 97 Rhythm: sinus with SA Findings: + LBBB Comparison ECG Date: from (2008) Change: the following changes noted (new LBBB) Code Status & VTE Plan Code Status DNR/DNI VTE Prophylaxis Plan VTE Prophylaxis will be ordered: Yes Critical Care Time Critical Care Time: Yes Total Critical Care Time: 100 Heart alert, arranging transfer to [place] [facility] Care Time/CCT Total # of Minutes Spent Total Time Spent with Patient: Total time spent is greater than 50% in coordination of care (as documented) at patient's floor/unit and/or counseling patient: Critical Care Time: Yes Total Critical Care Time: 100 Coding Level of Care Code 86810 Initial Inpt Care Lvl 3 Diagnoses Changes in vision H53.9 CVA, old, disturbances of vision I69.398; H53.9 Internal carotid artery stenosis I65.29 Vitreomacular traction syndrome of left eye H43.822 Elevated troponin R79.89 Left bundle branch block I44.7 Irregular heart rhythm I49.9 Weakness R53.1 Diabetes type 2, uncontrolled E11.65 Hypothyroidism E03.9 CAD in [place] artery I25.10 S/P aortic valve replacement with bioprosthetic valve Z95.3 Osteoporosis M81.0 Additional Codes Critical Care Time - Critical Care Time: Yes ([id number])
[2019-08-26] MEDS ORDERED: MAGNESIUM HYDROXIDE SUSP 30 ML UDC PO PRN (14:37)
[2019-08-26] MEDS ORDERED: ALUMINUM/MAGNESIUM SUSP 30 ML UDC PO PRN (14:37)
[2019-08-26] MEDS ORDERED: POLYETHYLENE (MIRALAX) 17 GM PACK PO PRN (14:37)
[2019-08-26] MEDS ORDERED: ONDANSETRON INJ 2 MG/ML 2 ML VIAL IV PRN (14:37)
[2019-08-26] MEDS ORDERED: PHARMACIST DISCHARGE MED REC CONSULT PRN (14:37)
[2019-08-26] MEDS ORDERED: ACETAMINOPHEN 325 MG TAB PO PRN (14:37)
[2019-08-26] MEDS ORDERED: PHARMACY GLYCEMIC MGMT CONSULT PRN (14:52)
[2019-08-26] MEDS ORDERED: GLUCOSE 40% GEL 15 GM TUBE PO PRN (15:00)
[2019-08-26] MEDS ORDERED: GLUCOSE 10 TABS/TUBE PO PRN (15:00)
[2019-08-26] MEDS ORDERED: DEXTROSE 50% 50 ML SYRINGE IV PRN (15:00)
[2019-08-26] MEDS ORDERED: ROSUVASTATIN CALCIUM 20 MG TAB PO SCH (15:00)
[2019-08-26] MEDS ORDERED: GLUCAGON FOR INJ 1 MG VIAL IM PRN (15:00)
[2019-08-26] MEDS ORDERED: CARBOHYDRATES FOR HYPOGLYCEMIA PO PRN (15:00)
--- NOTE | 2019-08-26 15:14 | Pharmacy Report ---
Glycemic Control Consultation - Date of Service August 26, 2019 - Scope Scope: Glycemic Pharmacist consulted for glycemic control and to write orders per [facility] inpatient glycemic control protocol. - Objective Weight: 75 kg Accuchecks BSG (last 24hrs): 08/26/19 08/26/19 09:09 09:40 Glucose 255 H POC Glucose 260 H Laboratory Data (last 24hrs): 08/26/19 09:09 Potassium 3.1 L Carbon Dioxide 23 Anion Gap 10.0 Creatinine 1.52 H Est Cr Clr Drug Dosing 25.4 HbA1c: 7.8% on 01/07/19 - Recent Pertinent Medications Outpatient Anti-diabetic Regimen: * Tresiba 18 units HS * NovoLog up to 35 units/day (8-12 units with meals) * [facility] Risk Factors for Insulin Resistance: * IVF: hep gtt mixed in dextrose * Diet - Assessment & Plan Assessment & Plan: ASSESSMENT: * 84yo T2DM female maintained on SQ basal bolus insulin regimen as an outpatient. Pt follows with [facility] Endocrinology * Last A1c reasonable at 7.8% but is outdated from 01/07/19. Will re-order per protocol * Pt uses Tresiba (insulin degludec) as an outpatient - this is a non-stock non- formulary medication; will sub to NPH since patient has an allergy to Lantus. * Pt uses Tresiba at HS but reported taking a dose this morning. Will use a scale of NPH BID since true insulin needs are unknown. * Pt used 8 units of NovoLog for breakfast - will use a calculated CHO ratio similar to outpatient orders and titrate based on BSG trends. PLAN FOR INPATIENT GLYCEMIC CONTROL: * Basal insulin * NPH SQ BID - dose based on BSG * BSG < 140 mg/dl --> 8 units * BSG 140-220 mg/dl --> 12 units * BSG > 220 --> 19 units * Bolus insulin * NovoLog per scale ACHS or Q6hrs while NPO * Goal Range: Low 110 mg/dL - High 140 mg/dL * Correction Factor: 20 mg/dL/unit * Nutritional / Prandial insulin per carb ratio of 1 unit per 7 grams CHO consumed * A1c with AM labs * Please note that the plan above was derived based on current level of insulin resistance and hospital stress. These recommendations are appropriate for inpatient admission only. Plan of care upon discharge will need to be reassessed to avoid potential outpatient hypo/hyperglycemia. Thank you.
[2019-08-26] MEDS ORDERED: ALBUT/IPRATROP 3MG/0.5MG NEB 3 ML VIAL NEB ONE (16:04)
--- NOTE | 2019-08-26 16:28 | XRay Report ---
XR chest 1V portable HISTORY: 84 years-old Female shortness of breath acute shortness of breath COMPARISON: Chest radiograph 08/26/2019 at 10:04 AM TECHNIQUE: Portable AP view of the chest FINDINGS: Cardiac silhouette is enlarged, unchanged. Calcified plaque of the thoracic aortic arch. Aortic valvu lar prosthesis. Prior median sternotomy. Trace pleural effusions. Pulmonary vascular congestion with progressively worsened interstitial opacities. More focal opacities are noted within the right suprah ilar distribution. Mild bibasilar densities. No pneumothorax. Degenerative changes of the shoulders a nd spine. IMPRESSION: 1. Cardiomegaly with pulmonary edema and new asymmetric right suprahilar opacities suggestive of alve olar pulmonary edema versus pneumonitis. 2. Trace pleural effusions with bibasilar densities suggestive of atelectasis. ACT 112: Negative or not required by law. The above report was generated using voice recognition software. It may contain grammatical, syntax o r spelling errors. Electronically signed by: Sahil Choi M.D. 08/26/2019 4:27 PM
[2019-08-26] MEDS ORDERED: INSULIN ASPART 100 UNITS/ML 3 ML PEN SC SCH (16:30)
[2019-08-26 16:36] LABS: Hematocrit (blood only) 40.7 % (37-47); Hemoglobin 13.3 g/dL (12.0-16.0)
[2019-08-26 16:53] LABS: BUN Creatinine Ratio 18.1 (10-20); Calcium 8.7 mg/dl (8.5-10.1); Creatinine Clr Calc Pharmacy 25.2 ml/min; Est GFR (African American) 36.1; Est GFR (Non-African American) 31.1; Potassium 3.4 mmol/L (3.5-5.1)
[2019-08-26] MEDS ORDERED: INSULIN HUMAN NPH SC SCH (17:00)
[2019-08-26 17:01] LABS: Troponin I 0.949 ng/ml (0-0.045)
[2019-08-26] MEDS ORDERED: NiCARDipine HCL INJ 2.5 MG/ML 10 ML AMP ONE (17:06)
[2019-08-26] MEDS ORDERED: HEPARIN (PORCINE) 1000 UNIT/ML 10 ML (CATH LAB USE ONLY) ONE (17:06)
[2019-08-26] MEDS ORDERED: fentaNYL citrate 100 MCG/2 ML VIAL ONE (17:06)
[2019-08-26] MEDS ORDERED: MIDAZOLAM HCL 1 MG/ML 2ML VIAL ONE (17:07)
--- NOTE | 2019-08-26 17:27 | Cardiology Consultation ---
Date of Consultation August 26, 2019 Assessment & Plan (1) Non-ST elevation [place] (NSTEMI): (2) Cardiomyopathy: (3) S/P aortic valve replacement with bioprosthetic valve: (4) CAD in [place] artery: (5) Hypertension: (6) Dyslipidemia: (7) SOB (shortness of breath): (8) Tachycardia: ASSESSMENT/PLAN: 1. NSTEMI: She gives a history for stuttering angina and now with positive troponin, significantly reduced LV systolic function, intermittent chest discomfort at rest and ongoing dyspnea, recommend urgent cardiac catheterization. Risk and benefits were discussed with her in detail. She was made aware that CT surgery is not available at this facility. She agrees to undergo the procedure. Her son was also notified via telephone. In the past, she was reported to have only minimal or mild nonobstructive CAD in 2009. She has received aspirin. 2. Cardiomyopathy: Newly diagnosed wall motion abnormalities and significantly reduced LV systolic function concerning for acute coronary syndrome/[place] as above. Urgent cardiac catheterization recommended. Appropriate medical therapy when able. 3. CAD: Reported minimal/mild nonobstructive CAD in 2009. Plan as above. Aspirin has been given. Continue high intensity statin therapy. There is concern for acute systolic CHF and therefore beta-shawn not initiated at this time. 4. Shortness of breath: Presentation concerning for acute systolic CHF the setting of ischemia. Exam difficult but plan on checking filling pressures during cardiac catheterization. She has received IV fluids on presentation in the emergency department for concern of dehydration. 5. Hypertension: Can be addressed following urgent cardiac catheterization. Mild hypertension. 6. Dyslipidemia: High intensity statin therapy. 7. Tachycardia: She appears to be in sinus rhythm with frequent PACs. Given her echo findings, it is concerning that her tachycardia may be due to redo stroke-volume to try to maintain cardiac output. Would try to avoid suppressing this at this time until further information can be gathered. 8. Bioprosthetic aortic valve: No significant stenosis based on echo findings. 9. Disposition: Cardiac catheterization recommended urgently. She was willing to undergo the procedure and has given consent. Her son, Eduardo, was contacted via telephone at her request. He was updated on her current condition and informed of the plan. Dr. Cuellar of the primary hospitalist service was also notified. Addendum: Urgent cardiac catheterization demonstrated severe CAD of the LMCA, ostial LAD, ostial circumflex, and proximal RCA. Left-sided filling pressures were significantly elevated. She was hypoxic during the procedure and placed on BiPAP. She was much more comfortable. Following the procedure, she is chest pain-free and denies shortness of breath while using BiPAP. Recommend Lasix 40 mg IV x1. Attempt to achieve adequate diuresis to improve her filling pressures/breathing. Nitropaste recommended. Resume heparin drip at previous rate without bolus given severe CAD and unstable angina earlier today. As she was hemodynamically stable and free from chest pain, it was not felt that she required more advanced support such as a balloon pump. If she should develop further ischemic symptoms, would consider this prior to transfer. Recommended transfer to CT surgery capable facility for consideration of high risk PCI versus CABG. She was agreeable and would like to go to [facility] [place]. She was accepted to the ICU under the care of Dr. Ledesma (appreciate his assistance). She will travel via air. Following cardiac catheterization, she was transferred to the ICU for continued management until a bed is available at [facility]. Oswaldo Martinez (KRISTINA- C critical care team) was contacted via telephone to discuss patient care as well. 60 minutes critical care time spent (not including time for cardiac catheteriz ation) managing critically ill patient, and coordinating care with multiple providers, patient, and her son. History of Present Illness Reason for Consultation: tachycardia Requesting Physician: Mitchell Cuellar MD Attending Physician: Mitchell Cuellar MD History of Present Illness Mrs. Cowart is a pleasant 84-year-old female with a history significant for bioprosthetic aortic valve, TIA, carotid artery stenosis, diastolic CHF, and labile hypertension. She also has a history of type 2 diabetes and dyslipidemia. Her primary cryptoanalysis teacher is Dr. Saldaña. For the past week, she has been feeling unwell. She reports headaches, vomiting, and diarrhea for the past 1 week. She cannot give any further details to how many times she has vomited or had diarrhea. She denies bleeding such as melena, hematochezia, or hematuria. She initially denied any type of chest discomfort but primary hospitalist, reported that she had mentioned that earlier. When asked once again during our visit, she then admitted to substernal chest tightness that she had for several hours earlier today. She later then admitted that she has had chest tightness with exertion only in the past few days that would resolve with rest. Today was the first day that she experienced chest discomfort at rest, which occurred while in the hospital laying in her bed. she has been short of breath the last few days. She weighs herself occasionally and states that her weight has been stable. She takes Lasix on an as-needed basis and has not required any per her report. She was at her PCPs office today and reported blurry vision or vision loss however to me she states that she only had blurry vision in her right eye and it has since improved. She had a CT scan without acute findings but old stroke was noted. She also reported to Dr. Cuellar blurry vision rather than vision loss. While here, she had an ECG in the emergency department which demonstrated a left bundle branch block which was new compared to her most recent ECG available for comparison. She was tachycardic however there did appear to be atrial activity noted prior to her QRS complexes suggesting sinus tachycardia with frequent PACs or possibly multifocal atrial tachycardia. She denies fevers or chills. She does have periumbilical abdominal pain which has been present for the past several days after vomiting. She believes that this pain occurred due to the vomiting rather than preceding the vomiting. She denies any recent edema but has had edema in the past. Review of systems: As above. Review of systems otherwise negative/unremarkable. Family history: She reports a family history of CAD. Social history: She denies tobacco or alcohol abuse. She is a . She has 2 children. She lives alone. She is unaccompanied. Allergies Allergy/AdvReac Type Severity Reaction Status Date / Time insulin glargine Allergy Unknown Verified 08/26/19 10:02 [From Lantus U-100 Insulin] morphine Allergy Unknown VOMITING Verified 08/26/19 10:02 Sulfa (Sulfonamide Allergy Unknown BURNING ON Verified 08/26/19 10:02 Antibiotics) URINATION atorvastatin [From Lipitor] AdvReac Mild Abdominal Verified 08/26/19 10:02 Pain Home Medications Home Medications Medication Instructions Recorded Confirmed Type potassium chloride 20 meq PO UD 04/07/18 08/26/19 History aspirin 81 mg tablet,delayed 81 mg PO QAM tab 12/30/18 08/26/19 History release cholecalciferol (vitamin D3) 50 2,000 units PO QAM cap 12/30/18 08/26/19 History mcg (2,000 unit) capsule nitroglycerin 0.4 mg sublingual 0.4 mg SL Q5M PRN #1 tab 12/30/18 08/26/19 History tablet OneTouch Verio test strips #400 ea NS 01/11/19 08/26/19 Rx amlodipine 5 mg tablet 5 mg PO BID #180 tab 05/03/19 08/26/19 Rx furosemide 40 mg tablet 40 mg PO DAILY PRN tab 05/03/19 08/26/19 History OneTouch Delica Lancets 33 gauge #400 ea NS 05/18/19 08/26/19 Rx pen needle, diabetic 32 gauge x #400 ea 05/18/19 08/26/19 Rx 5/32" levothyroxine 125 mcg tablet 125 mcg PO QAM #90 tab 06/02/19 08/26/19 Rx lisinopril 20 1 tab PO QAM #90 tab 07/04/19 08/26/19 Rx mg-hydrochlorothiazide 25 mg tablet insulin aspart U-100 [Novolog 35 units SUBCUT AC 08/26/19 08/26/19 History U-100 Insulin aspart] insulin degludec [Tresiba 8 - 12 units SQ HS 08/26/19 08/26/19 History FlexTouch U-100] rosuvastatin [Crestor] 40 mg PO Q2D 08/26/19 08/26/19 History Patient History Medical History (Updated 08/26/19 @ 19:01 by Mitchell Cuellar MD) Congestive heart failure Depression Diabetes mellitus, type 2 IDDM Diabetes type 2, uncontrolled Family history of diabetes mellitus grandmother maternal Family hx of colon cancer brother History of squamous cell carcinoma Hyperlipidemia Hypertension Hypothyroidism Migraine Osteoarthritis Vitreomacular traction syndrome of left eye Surgical History (Updated 03/22/19 @ 12:39 by Leonardo Saldaña MD) H/O left breast biopsy benign History of ankle surgery left ankle History of cardiac cath 8+ years ago History of cataract surgery Bilateral History of cholecystectomy History of colonoscopy History of heart valve replacement aortic valve 8 years ago (Dr Alvaro Sanchez) currently f/u with Dr Saldaña History of tooth extraction all teeth Nausea and vomiting after administration of anesthetic agent S/P aortic valve replacement with bioprosthetic valve (2009) Social History Preferred Language: Nam[place]ian Communication Ability: Effective Safety Compliance Specialist Required: No Beliefs That Will Affect Care: None Current Living Situation: Alone Other Information That Helps Us Care for You: No Feels Safe at Home: Yes Safety Concerns: Feels Safe At This Time Smoking Status: Never smoker Second Hand Exposure: No ; Hx Alcohol Use: No Hx Substance Use: No Physical Exam Physical Exam: Gen.: She appears uncomfortable but without significant distress. Alert and oriented. HEENT: Anicteric sclera. Neck: No appreciable JVD. No bruits. Normal carotid upstrokes bilaterally. Cardiac: PMI was nonpalpable. No ventricular heave. Tachycardic with ectopy. Normal S1-S2. 2/6 systolic murmur. No rubs, or gallops. Pulmonary: Decreased breath sounds throughout, especially at the bases. Clear to auscultation bilaterally without wheezes, rales, or rhonchi. Abdomen: Soft, nondistended, with hypoactive bowel sounds. No bruits noted. Mild tenderness in the periumbilical region. Extremities: 2+ radial pulses bilaterally. 2+ posterior tibialis pulses bilaterally. No edema or cyanosis. No palpable cords. Psychiatric: Affect appears appropriate. Results & Data ([facility]) Vital Signs (Past 12 Hours) Vital Signs Temp Pulse Pulse Resp BP BP Pulse Ox 08/26/19 16:38 113 H 28 H 92 08/26/19 14:37 36.7 C 22 149/73 H 92 08/26/19 14:00 90 23 140/82 92 08/26/19 13:30 91 H 21 139/95 92 08/26/19 13:01 99 H 22 164/84 H 93 08/26/19 12:31 88 22 159/72 H 93 08/26/19 12:00 102 H 22 143/115 H 94 08/26/19 11:31 94 H 24 135/89 92 08/26/19 11:06 88 L 08/26/19 11:01 90 24 150/90 H 90 08/26/19 10:30 88 22 164/90 H 92 08/26/19 10:04 110 H 22 145/78 H 94 08/26/19 09:30 81 23 149/66 H 95 08/26/19 09:17 102 H 23 144/90 H 95 08/26/19 09:05 95 08/26/19 08:52 36.4 C L 93 H 20 152/67 H 95 Laboratory Results Laboratory Results - last 24 hr 08/26/19 08/26/19 08/26/19 09:09 09:09 09:09 WBC 8.79 RBC 4.51 Hgb 13.0 Hct 39.6 MCV 87.8 MCH 28.8 MCHC 32.8 RDW Std Deviation 45.9 RDW Coeff of [place] 15.0 H Plt Count 289 MPV 10.5 H Immature Gran % (Auto) 0.5 Neut % (Auto) 70.6 Lymph % (Auto) 17.6 [place] % (Auto) 10.1 Eos % (Auto) 1.0 Baso % (Auto) 0.2 Immature Gran # (Auto) 0.04 H Neut # (Auto) 6.20 Lymph # (Auto) 1.55 [place] # (Auto) 0.89 H Eos # (Auto) 0.09 Baso # (Auto) 0.02 PT 10.7 INR 1.0 APTT 24.9 PTT Ratio 0.9 Sodium 131 L Potassium 3.1 L Chloride 98 Carbon Dioxide 23 Anion Gap 10.0 BUN 32 H Creatinine 1.52 H Est Cr Clr Drug Dosing 25.4 Est GFR ( Amer) 36.4 Est GFR (Non-Af Amer) 31.4 BUN/Creatinine Ratio 20.7 H Glucose 255 H POC Glucose Calcium 8.9 Magnesium 1.7 L Total Bilirubin 1.4 H AST 22 ALT 21 Alkaline Phosphatase 72 Troponin I 0.979 H* Total Protein 7.6 Albumin 3.0 L Globulin 4.6 H Albumin/Globulin Ratio 0.6 L Lipase 42 L Procalcitonin TSH 0.569 COVID-19 PCR 08/26/19 08/26/19 08/26/19 09:40 12:00 16:27 WBC RBC Hgb Hct MCV MCH MCHC RDW Std Deviation RDW Coeff of [place] Plt Count MPV Immature Gran % (Auto) Neut % (Auto) Lymph % (Auto) [place] % (Auto) Eos % (Auto) Baso % (Auto) Immature Gran # (Auto) Neut # (Auto) Lymph # (Auto) [place] # (Auto) Eos # (Auto) Baso # (Auto) PT INR APTT PTT Ratio Sodium 132 L Potassium 3.4 L Chloride 101 Carbon Dioxide 19 L Anion Gap 12.0 H BUN 28 H Creatinine 1.53 H Est Cr Clr Drug Dosing 25.2 Est GFR ( Amer) 36.1 Est GFR (Non-Af Amer) 31.1 BUN/Creatinine Ratio 18.1 Glucose 231 H POC Glucose 260 H Calcium 8.7 Magnesium Total Bilirubin AST ALT Alkaline Phosphatase Troponin I 0.949 H* Total Protein Albumin Globulin Albumin/Globulin Ratio Lipase Procalcitonin TSH COVID-19 PCR Pending 08/26/19 08/26/19 16:27 16:59 WBC RBC Hgb 13.3 Hct 40.7 MCV MCH MCHC RDW Std Deviation RDW Coeff of [place] Plt Count MPV Immature Gran % (Auto) Neut % (Auto) Lymph % (Auto) [place]assen % (Auto) Eos % (Auto) Baso % (Auto) Immature Gran # (Auto) Neut # (Auto) Lymph # (Auto) [place]assen # (Auto) Eos # (Auto) Baso # (Auto) PT INR APTT PTT Ratio Sodium Potassium Chloride Carbon Dioxide Anion Gap BUN Creatinine Est Cr Clr Drug Dosing Est GFR ( Amer) Est GFR (Non-Af Amer) BUN/Creatinine Ratio Glucose POC Glucose Calcium Magnesium Total Bilirubin AST ALT Alkaline Phosphatase Troponin I Total Protein Albumin Globulin Albumin/Globulin Ratio Lipase Procalcitonin Pending TSH COVID-19 PCR Diagnostic Findings Family history of CAD telemetry personally reviewed: Tachycardia. There does appear to be atrial activity, possibly sinus tachycardia. ECGs personally reviewed: ECG 08/26/2019 at 1:18 PM: Probable sinus tachycardia with frequent PACs. LBBB. ECG 08/26/2019 at 9:03 AM: Sinus with frequent PACs rhythm 97 bpm. LBBB. Chest x-ray 08/26/2019: Cardiomegaly with pulmonary edema per radiology. Trace pleural effusions. CT abdomen/pelvis 08/26/2019: Bilateral pleural effusion. Hiatal hernia. Normal appendix. No bowel obstruction. CT head 08/26/2019: No acute intracranial abnormality. Atrophy and microvascular ischemic changes. 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 Bedside echo 08/26/2019 personally reviewed while at the bedside: LV systolic function is severely reduced. Large LAD wall motion abnormality. Bioprosthetic aortic valve without significant stenosis suggested. Significant tricuspid regurgitation with pulmonary hypertension. Formal review to follow. Medications Administered Current Inpatient Medications Acetaminophen (Tylenol) 650 mg PO Q4H PRN PRN Reason: Pain or Fever Stop: 09/25/19 14:36 Al Hydrox/Mg Hydrox/Simethicone (Maalox) 15 ml PO Q4H PRN PRN Reason: Dyspepsia Stop: 09/25/19 14:36 Amlodipine Besylate (Norvasc) 5 mg PO BID TOAN Stop: 09/25/19 20:59 Dextrose (Dextrose 50%) 25 - 50 ml IV UD PRN; Protocol PRN Reason: Hypoglycemia Protocol Stop: 09/25/19 14:59 Glucagon (Glucagen) 1 mg IM UD PRN; Protocol PRN Reason: Hypoglycemia Protocol Stop: 09/25/19 14:59 Glucose (Glucose 40%) 15 - 30 gm PO UD PRN; Protocol PRN Reason: Hypoglycemia Protocol Stop: 09/25/19 14:59 Glucose (Dex4 Glucose) 4 - 8 tabs PO UD PRN; Protocol PRN Reason: Hypoglycemia Protocol Stop: 09/25/19 14:59 Heparin Sodium/Dextrose (Heparin Sodium/Dextrose) 25,000 units in 500 mls @ 21 mls/hr IV .[id number] [facility]; Protocol Stop: 09/25/19 11:29 Last Admin: 08/26/19 12:05 Dose: 1,050 units/hr, 21 mls/hr Documented by: Insulin Aspart (Novolog Flexpen) 0 units SC ACHS [facility] Stop: 09/25/19 16:29 Insulin Human NPH (Novolin N Nph) 0 units SC BIDM [facility]; Protocol Stop: 09/25/19 16:59 Levothyroxine Sodium (Synthroid) 125 mcg PO DAILYBB [facility] Stop: 09/26/19 06:29 Magnesium Hydroxide (Milk Of Magnesia) 30 ml PO Q12H PRN PRN Reason: Constipation Stop: 09/25/19 14:36 Miscellaneous (Carbohydrates For Hypoglycemia) 15 - 30 gm PO UD PRN PRN Reason: Hypoglycemia Treatment Stop: 09/25/19 14:59 Miscellaneous Information (Consult Glycemic Management Pharmacy) 1 ea N/A UD PRN PRN Reason: Consult Stop: 09/25/19 14:51 Miscellaneous Information (Pharmacist Discharge Med Rec Consult) 1 ea N/A UD PRN PRN Reason: Consult Stop: 09/25/19 14:36 Ondansetron HCl (Zofran) 4 mg IV Q6H PRN PRN Reason: Nausea Stop: 09/25/19 14:36 Polyethylene Glycol (Miralax Powder Packet) 17 gm PO DAILY PRN PRN Reason: Constipation Stop: 09/25/19 14:36 Rosuvastatin Calcium (Crestor) 40 mg PO Q2D@0900 TOAN Stop: 09/25/19 14:59 PG Care Time/CCT Total # of Minutes Spent Total Time Spent with Patient: Total time spent is greater than 50% in coordin ation of care (as documented) at patient's floor/unit and/or counseling patient: Critical Care Time: Yes Total Critical Care Time: 60 Coding Level of Care Code None Diagnoses Non-ST elevation [place] (NSTEMI) I21.4 Cardiomyopathy I42.9 S/P aortic valve replacement with bioprosthetic valve Z95.3 CAD in [place] artery I25.10 Hypertension I10 Dyslipidemia E78.5 SOB (shortness of breath) R06.02 Tachycardia R00.0 Additional Codes Critical Care Time - Critical Care Time: Yes ([id number]) Time Spent (min) 60 Comment Critical Care time [id number]
--- NOTE | 2019-08-26 17:45 | Pre Anesthesia Assessment ---
Date of Service August 26, 2019 Pre Sedation Assessment Vital Signs Temp Pulse Pulse Resp BP BP Pulse Ox 08/26/19 16:38 113 H 28 H 92 08/26/19 14:37 36.7 C 22 149/73 H 92 08/26/19 14:00 90 23 140/82 92 08/26/19 13:30 91 H 21 139/95 92 08/26/19 13:01 99 H 22 164/84 H 93 08/26/19 12:31 88 22 159/72 H 93 08/26/19 12:00 102 H 22 143/115 H 94 08/26/19 11:31 94 H 24 135/89 92 08/26/19 11:06 88 L 08/26/19 11:01 90 24 150/90 H 90 08/26/19 10:30 88 22 164/90 H 92 08/26/19 10:04 110 H 22 145/78 H 94 08/26/19 09:30 81 23 149/66 H 95 08/26/19 09:17 102 H 23 144/90 H 95 08/26/19 09:05 95 08/26/19 08:52 36.4 C L 93 H 20 152/67 H 95 Cardiovascular + tachycardic Respiratory + diminished lung sounds Pre-Sedation Airway Assessment Smoking Status: Never smoker ASA: ASA3 NPO Status Last Oral Intake of Fluids Comment: urgent Last Intake of Solids Comment: urgent Procedure Planning Contraindications for Sedation: none Current Medications Reviewed: Yes Notes The planned sedation has been discussed with the patient. Informed Consent was obtained. I have identified the patient, determined the appropriateness of sedation and have assessed the patient immediately prior to the procedure. All medicine(s) and interventions are by my order.
--- NOTE | 2019-08-26 18:37 | Cardiac Catheterization ---
[facility] Data: Sole Rounder Cardiac Status Clinical evaluation leading to the procedure CAD Presenation: Non STEMI Anginal Classification: CCS IV Heart Failure: NYHA Class: CCS IV Cardiogenic Shock within 24 Hours: No Cardiac Arrest within 24 Hours: No Imaging Studies Past 6 Months: Yes Stress Studies Past 6 Months: No Standard Exercise Test: No Stress Echocardiogram: No Stress Testing w/SPECT MPI: No Cardiac CTA: No Coronary Anatomy Dominant: Right Left Ventricular Angiography EF (%): n/a Diagnostic Physicians Name: Michael Wagner MD Status: Urgent Closure Device Percutaneous Entry Location: Radial Closure Device: Radial Band Recommendations: Management Recommendatons (Consideration of high risk PCI versus CABG evaluation) Cardiac Cath Procedure Full Procedure Date August 26, 2019 Pre-Procedure Diagnosis Pre-Procedure Diagnosis: Non STEMI, Angina and Cardiomyopathy AUC Score AUC Score: 9 Post-Procedure Diagnosis Post-Procedure Diagnosis: Severe CAD and Elevated Intracardiac Pressures Procedure(s) Performed Procedure(s) Performed: Coronary Angiography and Left Heart Cath Contractor Buyer Michael Wagner MD Financial Assistant(s) Zhanna Chambers Estimated Blood Loss Estimated Blood Loss: < 25 ml Medication(s) Medication(s): Fentanyl, Lidocaine 1%, Nicardipine and Versed Summary of Findings Procedure: 1. Coronary angiography 2. Left heart catheterization 3. Moderate sedation Coronary angiography: 1. Left main coronary artery: The LMCA is large in caliber. Distal RCA 80 to 90% stenosis involving the ostium of the LAD and circumflex. FAHAD-3 flow. 2. Left anterior descending: LAD is a large-caliber vessel that extends to the apex. Ostial LAD 90 to 95%. Large D1 and small D2. Remainder of the LAD system without significant CAD. FAHAD-3 flow. 3. Circumflex: The circumflex is a large-caliber vessel. Ostial circumflex approximately 80%. Large OM1. Remainder of circumflex system without significant CAD. FAHAD-3 flow. 4. Right coronary artery: The RCA is a large and dominant vessel. Proximal RCA 90 to 95% with significant calcium burden. Mid RCA 20 to 30%. Distal RCA 20%. PDA and PL without significant CAD. FAHAD-3 flow. 5. Ramus intermedius: Small caliber ramus intermedius without obvious significant CAD. Left heart catheterization: 1. Left ventriculography was not performed. 2. Severely elevated LVEDP; LVEDP 24 mmHg. 3. No significant stenosis of the bioprosthetic aortic valve. Moderate sedation: 1. Sedation start time: 1748 2. Sedation end time: 1816 Procedural notes: 1. Due to mild hypoxia while laying flat, and increased work of breathing, BiPAP was initiated. Her breathing improved significantly. She remained chest pain-free throughout the procedure. Impression: 1. Severe multivessel CAD involving LMCA, ostial LAD, ostial circumflex, and proximal RCA. 2. Severely elevated left-sided filling pressures. 3. Severely reduced LV systolic function noted on echo. 4. No significant aortic stenosis of bioprosthetic aortic valve. Plan: 1. Images were reviewed with interventional cardiology. 2. Transfer to [facility] [place] for consideration of high risk PCI versus CABG. 3. Dr. Ledesma has accepted Mrs. Cowart in transfer to HV ICU at [facility]. She will travel via helicopter. 4. Resume heparin drip. 5. Diurese. 6. Continue BiPAP. Hemodynamics Rest Ao:: 140/56 Final Ao: 152/54 LV: 147/14/24 Recommendations Recommendations: Management Recommendatons (Consideration of high risk PCI versus CABG evaluation) Specimens Specimens: None Radiation Exposure (mGy) 817 mGy. Fluoro time 7.7 min. Contrast (mls) 40 ml Procedural Complication(s) None Disposition ICU I attest to the content of the Intraoperative Record and any orders documented therein. Any exceptions are noted below. [facility] Card Cath Procedure Codes Cardiac Catheterization Procedure 1: Cardiovascular Cath Procedures: 01842 Coronaries and LHC (+/-LV) Moderate Sedation Procedure 1: Sedation/Anesthesia: 75953 Mod Sedation by the same physician;Init15 Min Child Age 5 & Up Procedure 2: Sedation/Anesthesia: 89699 Mod Sedation by the same physician; Ea [id number] Minutes PG Care Time/CCT Total # of Minutes Spent Total Time Spent with Patient: Total time spent is greater than 50% in coordination of care (as documented) at patient's floor/unit and/or counseling patient:
--- NOTE | 2019-08-26 18:47 | Post Anesthesia Assessment ---
Date of Service August 26, 2019 Post Sedation Assessment Vital Signs Temp Pulse Pulse Resp BP BP Pulse Ox 08/26/19 16:56 90 08/26/19 16:38 113 H 28 H 92 08/26/19 14:37 36.7 C 22 149/73 H 92 08/26/19 14:00 90 23 140/82 92 08/26/19 13:30 91 H 21 139/95 92 08/26/19 13:01 99 H 22 164/84 H 93 08/26/19 12:31 88 22 159/72 H 93 08/26/19 12:00 102 H 22 143/115 H 94 08/26/19 11:31 94 H 24 135/89 92 08/26/19 11:06 88 L 08/26/19 11:01 90 24 150/90 H 90 08/26/19 10:30 88 22 164/90 H 92 08/26/19 10:04 110 H 22 145/78 H 94 08/26/19 09:30 81 23 149/66 H 95 08/26/19 09:17 102 H 23 144/90 H 95 08/26/19 09:05 95 08/26/19 08:52 36.4 C L 93 H 20 152/67 H 95 Recovery Score Activity: Moves 4 extremities Respiration: Deep Breath/Cough Circulation: +/-20% PreAnes Value Consciousness: Fully Awake Oxygen Saturation: O2 needed for >90% Discharge Sedation Level of Care: Fast Track Phase II Post Sedation Plan On clinical assessment, the patient appears to have tolerated the sedation without complications. Patient is recovering as anticipated. Patient will continue to be monitored by nursing and may be discharged when sedation discharge criteria are met per below protocol. Upon Completions of procedure up to 15 minutes continue every 5 minute vital signs and the P.A.R. score; then discharge to a Phase I or Fast Track to Phase II per the following guidelines: * Discharge Patient to appropriate Phase II area if PAR is 8 or greater or return to pre- procedure baseline. The post - procedure orders will be as directed. * If PAR score is less than 8 or not return to pre-procedure baseline then patient will follow Phase I monitoring till PAR is reached for Phase II. The Phase I may be done in procedure room or may call to secure a Phase I area. * If naloxone or flumazenil are used for reversal, hold in Phase I for continued monitoring from when last reversal dose was given for a minimum of 60 minutes or longer pending the nurse and/or physician discretion of patient condition before discharge to Phase II. Please call the Sedation Physician to re-evaluate and complete post-note for discharge to Phase II area. Do NOT discharge from procedure sedation or Phase 1 until post- sedation evaluation note is complete by procedure /sedation MD Sedation Discharge Instructions to be given to the patient at discharge to home.
[2019-08-26] MEDS ORDERED: NITROGLYCERIN SL 0.4 MG/TAB TAB SL PRN (19:17)
[2019-08-26] MEDS ORDERED: FUROSEMIDE 40 MG in SYRINGE 0 ML IV ONE (19:30)
[2019-08-26] MEDS ORDERED: NITROGLYCERIN 2% OINTMENT 30GM TUBE EXT SCH (19:30)
[2019-08-26] MEDS ORDERED: STROKE PATIENT DISCHARGE STA (19:50)
[2019-08-26] MEDS ORDERED: AMLODIPINE BESYLATE 5 MG TAB PO SCH (21:00)
--- NOTE | 2019-08-27 06:14 | Electrocardiogram Report ---
Test Reason : Blood Pressure : / mmHG Vent. Rate : 097 BPM Atrial Rate : 115 BPM P-R Int : 000 ms QRS Dur : 148 ms QT Int : 406 ms P-R-T Axes : 000 -07 156 degrees QTc Int : 515 ms Sinus rhythm with frequent Premature atrial complexes Left bundle branch block Abnormal ECG When compared with ECG of 23-OCT-2008 22:18, Premature atrial complexes are now Present Vent. rate has increased BY 47 BPM Left bundle branch block is now Present Confirmed by Michael Wagner ([id number]) on 08/27/2019 6:13:25 AM Referred By: REFERRED SELF Confirmed By:Michael Wagner
[2019-08-27] MEDS ORDERED: LEVOTHYROXINE SODIUM 125 MCG TABLET PO SCH (06:30)
--- NOTE | 2019-08-27 06:32 | Electrocardiogram Report ---
Test Reason : Blood Pressure : / mmHG Vent. Rate : 106 BPM Atrial Rate : 122 BPM P-R Int : 000 ms QRS Dur : 140 ms QT Int : 386 ms P-R-T Axes : 000 -02 156 degrees QTc Int : 512 ms Sinus tachycardia with frequent , and consecutive Premature atrial complexes with premature ventricul ar or aberrantly conducted complexes Left bundle branch block Abnormal ECG When compared with ECG of 26-AUG-2019 09:03, No significant change was found Confirmed by Michael Wagner ([id number]) on 08/27/2019 6:32:21 AM Referred By: REFERRED SELF Confirmed By:Michael Wagner
--- NOTE | 2019-08-27 10:18 | Neurology Consultation ---
Date of Consultation August 27, 2019 History of Present Illness Reason for Consultation: Patient flown to [facility] prior to my assessment. Attending Physician: Mitchell Cuellar MD Allergies Allergy/AdvReac Type Severity Reaction Status Date / Time insulin glargine Allergy Unknown Verified 08/26/19 10:02 [From Lantus U-100 Insulin] morphine Allergy Unknown VOMITING Verified 08/26/19 10:02 Sulfa (Sulfonamide Allergy Unknown BURNING ON Verified 08/26/19 10:02 Antibiotics) URINATION atorvastatin [From Lipitor] AdvReac Mild Abdominal Verified 08/26/19 10:02 Pain Home Medications Home Medications Medication Instructions Recorded Confirmed Type potassium chloride 20 meq PO UD 04/07/18 08/26/19 History aspirin 81 mg tablet,delayed 81 mg PO QAM tab 12/30/18 08/26/19 History release cholecalciferol (vitamin D3) 50 2,000 units PO QAM cap 12/30/18 08/26/19 History mcg (2,000 unit) capsule nitroglycerin 0.4 mg sublingual 0.4 mg SL Q5M PRN #1 tab 12/30/18 08/26/19 History tablet OneTouch Verio test strips #400 ea NS 01/11/19 08/26/19 Rx amlodipine 5 mg tablet 5 mg PO BID #180 tab 05/03/19 08/26/19 Rx furosemide 40 mg tablet 40 mg PO DAILY PRN tab 05/03/19 08/26/19 History OneTouch Delica Lancets 33 gauge #400 ea NS 05/18/19 08/26/19 Rx pen needle, diabetic 32 gauge x #400 ea 05/18/19 08/26/19 Rx 5/32" levothyroxine 125 mcg tablet 125 mcg PO QAM #90 tab 06/02/19 08/26/19 Rx lisinopril 20 1 tab PO QAM #90 tab 07/04/19 08/26/19 Rx mg-hydrochlorothiazide 25 mg tablet Tresiba FlexTouch U-100 8 - 12 units SQ HS 08/26/19 08/26/19 History insulin aspart U-100 [Novolog 35 units SUBCUT AC 08/26/19 08/26/19 History U-100 Insulin aspart] rosuvastatin [Crestor] 40 mg PO Q2D 08/26/19 08/26/19 History Patient History Medical History (Updated 08/26/19 @ 19:01 by Mitchell Cuellar MD) Congestive heart failure Depression Diabetes mellitus, type 2 IDDM Diabetes type 2, uncontrolled Family history of diabetes mellitus grandmother maternal Family hx of colon cancer brother History of squamous cell carcinoma Hyperlipidemia Hypertension Hypothyroidism Migraine Osteoarthritis Vitreomacular traction syndrome of left eye Surgical History (Updated 03/22/19 @ 12:39 by Leonardo Saldaña MD) H/O left breast biopsy benign History of ankle surgery left ankle History of cardiac cath 8+ years ago History of cataract surgery Bilateral History of cholecystectomy History of colonoscopy History of heart valve replacement aortic valve 8 years ago (Dr Alvaro Sanchez) currently f/u with Dr Saldaña History of tooth extraction all teeth Nausea and vomiting after administration of anesthetic agent S/P aortic valve replacement with bioprosthetic valve (2009) Social History Preferred Language: French Communication Ability: Effective Cooling Pan Tender Required: No Beliefs That Will Affect Care: None Current Living Situation: Alone Feels Safe at Home: Yes Smoking Status: Never smoker Second Hand Exposure: No ; Hx Alcohol Use: No Hx Substance Use: No PG Care Time/CCT Total # of Minutes Spent Total Time Spent with Patient: Total time spent is greater than 50% in coordination of care (as documented) at patient's floor/unit and/or counseling patient: Coding Level of Care Code None
--- NOTE | 2019-08-27 12:25 | XCELERA ---
[id number]
--- NOTE | 2019-08-27 13:40 | Discharge Summary ---
Date of Service August 26, 2019 Admission HPI Per Admitting Provider Britney Cowart is an 84 year old female with prior aortic valve replacement, CAD, Type 2 diabetes mellitus, hypothyroidism, hypertension who presents to the ER with a 2 week history of diarrheal illness, culminating with vision changes for the past 2-7 days. She was advised to come to the ER for her symptoms on Thursday but was anxious about coming to the ER so went to her PCP today with irregular heart rate, tachycardia and complaining of vision loss. History taking is challenging as the patient changes her story often during the same conversation. She was seen with her daughter who is able to provide a little mor e clarity. Her illness started with diarrhea with lower abdominal cramping pain, she denies any watery diarrhea. She became significantly dehydrated during this time but eventually her diarrhea improved about 3-4 days ago, her appetite however has not improved. No loss of taste or smell. No nausea or vomiting. No melena or red blood in stool. Unclear when her vision changes truly started but appears to have been getting worse the last 2 days at least. She told her PCP that she had vision loss in her left eye but both herself and her daughter tell me it was her right eye. At the present time she notes notes blurring of vision bilaterally not in a specific visual field, worse than her vision 2 weeks ago but significantly improved from what she had when she saw her PCP earlier today. On specific questions she feels she had right vision blurring with her PCP earlier rather than any blackness or true vision loss. Discussed CT head showing prior left occipital stroke and she denies any prior history of left sided visual field loss. She does not a history of vitreomacular traction syndrome in her left eye which improved with surgery - reportedly improved her vision to 20/40. She does reports current headache ?present for 1-2 days, all over the head, aching. No unilateral extremity weakness, facial droop. She denies any chest pain, shortness of breath, palpitations, orthopnea, PND, presyncope or syncope. She denies any shortness of breath, cough, fever, loss of taste or smell. No known COVID-19 exposure. Admission Exam Per Admitting Provider Constitutional: well developed and + obese; + not well nourished and no acute distress Eyes: normal visual canseco by confrontation (grossly normal vision in both eyes), + anicteric sclerae and EOM intact bilaterally (no double vision); + no PERRL (left pupil slightly larger, right pupil sluggish but reactive) ENMT: external ear and nose normal, oropharynx normal Neck: trachea midline, no thyromegaly Respiratory: normal respiratory effort and able to speak in complete sentences; no respiratory distress, no labored breathing and does not use accessory muscles Auscultation: + diminished lung sounds (bibasal); no crackles, no rales, no rhonchi and no wheezes Cardiovascular: Rate/Rhythm: + tachycardic and + irregularly irregular Heart Sounds: no murmur Vessels: no JVD Extremities: normal capillary refill; no calf tenderness and no pedal edema Gastrointestinal (Abdomen): normal bowel sounds, soft, nontender, no hepato splenomegaly Musculoskeletal: no cyanosis or clubbing, extremities motor strength 5/5 Skin: no rashes, warm and dry Neurologic: moves all extremities and awake; no focal motor deficits and not confused Speech / Cognition: normal speech Motor/Sensory: no tremor and no pronator drift Psychiatric: A+Ox3, euthymic affect Genitourinary: no CVA tenderness Lymphatic: no cervical or axillary lymphadenopathy Principal Diagnosis NSTEMI Ischemic cardiomyopathy Acute systolic congestive heart failure Vision blurring - unclear etiology at discharge; possibly new acute stroke vs. poor perfusion to area of prior stroke Irregular tachycardia - sinus rhythm with frequent PACs New Left bundle branch block Discharge Exam Patient seen in ICU after cardiac cath. On BiPAP. No chest pain For full exam see admission Discharge Data Allergies Allergy/AdvReac Type Severity Reaction Status Date / Time insulin glargine Allergy Unknown Verified 08/26/19 10:02 [From Lantus U-100 Insulin] morphine Allergy Unknown VOMITING Verified 08/26/19 10:02 Sulfa (Sulfonamide Allergy Unknown BURNING ON Verified 08/26/19 10:02 Antibiotics) URINATION atorvastatin [From Lipitor] AdvReac Mild Abdominal Verified 08/26/19 10:02 Pain Consultations 08/26/19 11:27 ED Decision to Admit Stat 08/26/19 14:37 Consult Case Management - Discharge Planning Routine Consult Neurology Routine 08/26/19 15:53 Consult Cardiology Routine Procedures Performed Operation Date: 08/26/19 17:15 Actual Procedures p Cath, Left with Cors and Vent - Chip Sheehan MD Ordered Studies XR chest 1V portable IMPRESSION: Cardiomegaly and suspected mild pulmonary vascular congestion/fluid overload. No evidence of focal pulmonary consolidation 08/26/19 09:33 CT head/brain wo con Stat Impression: No acute intracranial abnormality. Atrophy and microvascular ischemic changes. Old left HELP DESK ENGINEER territory infarct. 08/26/19 09:34 CT abd pelvis wo con Stat IMPRESSION: 1. Motion degraded study 2. Cardiomegaly and bilateral pleural effusions 3. Moderate hiatal hernia 4. Diverticulosis. No evidence of acute diverticulitis 5. Normal appendix 6. No evidence of bowel obstruction. No evidence of free air 7. 5 mm hyperdense focus within the left renal pelvis. While nonspecific, this likely represents a faintly opaque calculus. Transthoracic Echocardiogram Interpretation: 1. Normal left ventricular size with severely reduced systolic function. Estimated 20-25%. Akinesis of the apex, mid anteroseptum, mid to distal inferoseptum, mid to distal inferior wall, mid to distal anterior wall, and distal anterolateral wall segments. Otherwise, global hypokinesis with relative sparing of the inferolateral wall. Mild concentric left ventricular hypertrophy. 2. Normal RV size with mildly reduced systolic function. 3. Mild left atrial dilation. 4. Bioprosthetic aortic valve with acceptable transvalvular gradient/velocity. 5. Mild aortic regurgitation. 6. Mild-moderate mitral regurgitation. 7. Moderate to severe tricuspid regurgitation. 8. Mild pulmonary hypertension. Estimated RVSP 43 mmHg 9. No prior study available for comparison 08/26/19 17:04 CL Cath Imgs for PACS use only Routine Impression: 1. Severe multivessel CAD involving LMCA, ostial LAD, ostial circumflex, and proximal RCA. 2. Severely elevated left-sided filling pressures. 3. Severely reduced LV systolic function noted on echo. 4. No significant aortic stenosis of bioprosthetic aortic valve. Hospital Course (1) Non-ST elevation [place] (NSTEMI): Britney Cowart is an 84 year old female who presented to the ER on advice of her outpatient PCP due to vision loss, weakness and irregular heart rate. She had been having a diarrheal illness starting 2 weeks ago which subsequently improved but has not been eating and drinking well since this time and was considerably weaker than her baseline (not unilateral). On arrival to the ER, EKG was assessed to be in atrial fibrillation and patient was started on Heparin IV. Rate control not necessary as around [address] head showed old HELP DESK ENGINEER infarct causing left medial occipital encephalomalacia. She was referred to medicine as suspected acute CVA due to vision loss with atrial fibrillation. ER medications: IV heparin standard drip with half normal bolus - anticoagulation for suspected a. fib 500ml NSS given in ER as suspected to be dehydrated from diarrheal illness and not drinking well. Cr 1.52 was close to her baseline of 1.32 ASA 324mg PO given in ER due to elevated troponin and concern for acute stroke. Mg sulphate 1g given for Mg level 1.7 KCl 10 meq IV given for K level 3.1 On admission the patient changed her story that her vision was actually just blurry rather than any true vision loss. She noted at her PCP office it was her right eye causing her problems rather than left as per office notes. Her vision on admission was equal bilaterally without a visual field defect but more blurry (describes "cobwebs" but no floaters) than her baseline. She was able to identify number of fingers at 6 feet. EKG was reviewed with cardiology and along with telemetry; p waves were present and this appears to be a sinus arrhythmia. Heparin IV drip was changed to low dose given elevated troponin. LBBB on EKG was new from 2008 but patient denied any recent chest pain or shortness of breath on admission. Troponin was elevated at 0.979 but in absence of symptoms this was suspected to be demand-ischemia on admission. On transfer to PCU she became acutely short of breath and developed chest pain. With hindsight she noted she has been having chest pain on exertion for the last week. Repeat CXR showed pulmonary edema; suspect secondary to IV bolus 500ml given in ER and lying flat during transfer to the [facility]. She underwent stat cardiology review and echocardiogram which showed severely reduced LVEF 20-25% with akinesis of apex, mid anteroseptum, mid to distal inferoseptum, mid to distal inferior wall, mid to distal anterior wall and distal anterolateral wall segments. Heart alert was called and she was taken on an emergently to the cath lab tech. Subsequent cardiac cath showed severe multivessel CAD involving LMCA, ostial LAD, ostial circumflex, and proximal RCA. High risk PCI versus consideration for CABG, therefore case was discussed with [facility] (Dr eLdesma) and she was accepted for urgent transfer via helicopter. She was started on BiPAP and given 40mg IV Lasix prior to transfer. (2) Changes in vision: (3) CVA, old, disturbances of vision: (4) Internal carotid artery stenosis: (5) Vitreomacular traction syndrome of left eye: (6) Elevated troponin: (7) Left bundle branch block: (8) Irregular heart rhythm: (9) Weakness: (10) Diabetes type 2, uncontrolled: (11) Hypothyroidism: (12) CAD in [place] artery: (13) S/P aortic valve replacement with bioprosthetic valve: (14) Osteoporosis: Total Time Total Time Spent Total Time Spent (In Minutes): 40 Total Time Includes: Examination of the Patient, Discharge Planning, Medication Reconciliation and Communication With Other Providers Discharge Plan Discharge Items Patient Disposition: Transfer Acute Care Hospital Reason For Visit: Irregular heart rate, BLURRING OF VISION Discharge Diagnosis: NSTEMI Cardiomyopathy Acute systolic congestive heart failure Vision blurring (possible new acute stroke) Irregular tachycardia - sinus rhythm with frequent PACs New Left bundle branch block Activity: As commented below Non-emergency contact: Primary Care Provider Call non-emergency contact if: you have any medication questions and your symp toms worsen Follow-up/Referrals: Guero Wayne MD [Primary Care Provider] - Diet: Carb Consistent or DM2 and Nothing by Mouth Addtl Attending Provider Instructions: Patient admitted initially with concerns for vision blurring after a diarrheal illness and concern for atrial fibrillation given irregular heart rate. Developed shortness of breath and chest pain on transfer to PCU. Due to symptoms, LBBB, elevated troponin, new wall motion abnormalities on echo; heart alert was called and underwent emergent cardiac catheterization. Results discussed results with [facility] and she will be transferred by air. Of note: med list below is her home medication list. Please see additional scanned copy for inpatient list. Pending Studies at Discharge: No Stand-Alone Forms: My [facility] Skilled Items Patient informed of condition?: Yes DNR: Yes Discharge Level of Care: Other Communicable Disease: No (COVID-19 negative) Discharge Prognosis: Other Lines: Peripheral IV Urinary Catheter: Yes Medications and DC Order Prescriptions: Continued (DME) OneTouch Verio test strips strip See Dose Instructions .ROUTE .MEDSUPPLY Qty: 400 RF: 3 (DME) lancets [OneTouch Delica Lancets] 33 gauge misc See Rx Instructions .ROUTE .MEDSUPPLY Qty: 400 RF: 3 (DME) pen needle, diabetic [BD Ultra-Fine Sravani Pen Needle] 32 gauge x 5/32" needle See Rx Instructions .ROUTE .MEDSUPPLY Qty: 400 RF: 3 levothyroxine 125 mcg tablet 125 mcg PO QAM Qty: 90 RF: 1 lisinopril-hydrochlorothiazide 20-25 mg tablet 1 tab PO QAM Qty: 90 RF: 3 aspirin 81 mg tablet,delayed release (DR/EC) 81 mg PO QAM RF: 0 cholecalciferol (vitamin D3) 2,000 unit capsule 2,000 units PO QAM RF: 0 nitroglycerin 0.4 mg tablet, sublingual 0.4 mg SL Q5M PRN (Reason: chest pain) Qty: 1 RF: 0 furosemide [Lasix] 40 mg tablet 40 mg PO DAILY PRN (Reason: edema) RF: 0 amlodipine 5 mg tablet 5 mg PO BID Qty: 180 RF: 3 potassium chloride 20 mEq Tablet Extended Release 20 meq PO UD RF: 0 insulin aspart U-100 [Novolog U-100 Insulin aspart] 100 unit/mL solution 35 units subcut AC RF: 0 rosuvastatin [Crestor] 40 mg tablet 40 mg PO Q2D RF: 0 Tresiba FlexTouch U-100 100 unit/mL (3 mL) insulin pen 8 - 12 units SQ HS RF: 0 Discharge Orders: Discharge Order (Routine); Ordered 08/26/19 Ordered By: Mitchell Cuellar Admission Data Admit Date/Time: 08/26/19 12:42 Attending Provider: Mitchell Cuellar Admit Provider: Mitchell Cuellar Primary Care Provider: Guero Wayne V. Other Providers: Mitchell Cuellar ; Ayan Palmer ; Michael Wagner Other Interventions: Discharge Summary Assessment (RN) Last Done: 08/26/19 20:27 DC Date/Time DO NOT enter until pt leaves facility: 08/26/19 20:15 Coding Level of Care Code Admit/DC Same Day >8hr Level 3 Diagnoses Non-ST elevation [place] (NSTEMI) I21.4 Changes in vision H53.9 CVA, old, disturbances of vision I69.398; H53.9 Internal carotid artery stenosis I65.29 Vitreomacular traction syndrome of left eye H43.822 Elevated troponin R79.89 Left bundle branch block I44.7 Irregular heart rhythm I49.9 Weakness R53.1 Diabetes type 2, uncontrolled E11.65 Hypothyroidism E03.9 CAD in [place] artery I25.10 S/P aortic valve replacement with bioprosthetic valve Z95.3 Osteoporosis M81.0
== END 2019-08-26 20:15 | disposition short-term general hospital (02) | DRG 280 ==
LOC: ED 08:49 → 2S 12:42 → 1E 18:57